=== PATIENT | female | born 2005 | race Caucasian/White ===

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

== ENCOUNTER 2025-05-23 12:13 | Emergency (ER) | payer SELFPAY ==
[2025-05-23 12:36] VITALS: BP 129/81; PULSE 86; RESP 16; TEMP 36.8; O2SAT 99; BMI 29.2
--- NOTE | 2025-05-23 13:00 | XR_ITS ---
WS: [id number] Exam: XR foot RT min 3V* [id number] Date/Time of Exam: 05/23/2025 1:12 PM Reason For Exam: pain No fracture noted. The joints are preserved. Normal soft tissues. XR/XR foot RT min 3V* [id number] IMPRESSION: 1. Negative RIGHT foot.
[2025-05-23 13:09] LABS: Hematocrit 43.7 % (36-47); Hemoglobin 14.20 g/dL (12.4-14.8); Mean Corpuscular HGB Conc 32.5 g/dL (30-55); Mean Corpuscular Hemoglobin 29.4 pg (27-33); Mean Corpuscular Volume 90.5 fl (85-98); Nucleated Red Blood Cells % 0 %; Platelet Count 214 10^3/cmm (157-399); Red Blood Count 4.83 10^6/uL (3.85-5.65); White Blood Count 7.41 10^3/uL (4.5-13.0)
[2025-05-23 13:29] LABS: Anion Gap 14.8 (5-19); Blood Urea Nitrogen 12 mg/dL (6-20); Calcium 9.3 mg/dL (8.5-10.5); Carbon Dioxide 26 mmol/L (22-29); Chloride 102 mmol/L (98-107); Glucose 93 mg/dL (65-115); Osmolality Calculated 287 mOsm/kg (285-295); Potassium 3.8 mmol/L (3.5-5.1); Sodium 139 mmol/L (136-145)
--- NOTE | 2025-05-23 13:42 | W.ED.EXTPRO ---
HPI - Extremity Problem General: Chief complaint: Extremity Problem,Nontraumatic Stated complaint: discoloration on bottom of R foot Time Seen by Provider: 05/23/25 12:42 History of Present Illness: 20-year-old female presents emergency room complaining of forefoot pain particularly over the 1st, 2nd and 3rd metatarsals distally. 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 She also reports her feet get very sweaty last night there is some discoloration on her feet she showed me a picture compared to the day it has already resolved. She has not had any direct trauma. Related Data Home Medications ?Medication ?Instructions ?Recorded ?Confirmed cetirizine 10 mg capsule (Zyrtec) 10 mg PO DAILY PRN 06/08/23 06/08/23 Previous Rx's ?Medication ?Instructions ?Recorded amoxicillin 875 mg-potassium 1 tab PO BID 7 days #14 tabs 06/08/23 clavulanate 125 mg tablet Allergies Allergy/AdvReac Type Severity Reaction Status Date / Time diphenhydramine (From Allergy Intermediate Unknown Verified 06/08/23 14:44 Benadryl) guaifenesin (From Robitussin) Allergy Intermediate Unknown Verified 06/08/23 14:44 Physical Exam Const: COMMON NORMALS: no acute distress GENERAL APPEARANCE: cooperative and comfortable ORIENTATION/CONSCIOUSNESS: Yes awake, Yes oriented to person, Yes oriented to place and Yes oriented to time HENMT: COMMON NORMALS: normocephalic, atraumatic and hearing grossly normal bilaterally HEAD & SCALP: normocephalic and atraumatic Resp: COMMON NORMALS: normal respiratory effort, No retractions and No use of accessory muscles Extremity: COMMON NORMALS: normal to inspection, capillary refill normal, no clubbing, cyanosis or edema, no calf tenderness and no pedal edema OTHER: Examination of the right foot patient has an unusual callus pattern with callus over the distal first metatarsal and then over the 3rd, 4th and 5th metatarsals between which there is a small gap on callused skin. No lacerations no evidence of foreign body no deformity no ecchymosis. No skin breakdown ulcerations. No signs of infection Neuro: SENSORIUM/ORIENTATION: Yes oriented to person, Yes oriented to place and Yes oriented to time Skin: COMMON NORMALS: no rashes or lesions noted GENERAL SKIN EXAM: no rashes or lesions noted Course Vital Signs: Vital signs: Vital Signs Temperature 98.2 F 05/23/25 12:36 Pulse Rate 86 05/23/25 12:36 Respiratory Rate 16 05/23/25 12:36 Blood Pressure 129/81 05/23/25 12:36 Pulse Oximetry 99 05/23/25 12:36 Oxygen Delivery Me thod Room Air 05/23/25 12:36 MDM - Extremity (Nontraumatic) Medical Decision Making Medical decision making Social determinants: None I reviewed the patient's medical record. I reviewed the patient's current home meds. Alternate historians: None Differential diagnosis: Fracture versus infection versus soft tissue strain Lab Review: CBC is normal, BMP normal Imaging: X-ray of the right foot no acute fractures no acute abnormalities Assessment of risk Level of risk: Low Hospitalization considerations: Not considered Reexamination: Unchanged Assessment and plan: No acute fracture or abnormality found. Suspect may have some metatarsalgia which is the cause of her chronic foot pain when she is on her feet for extended period of time. I also think she may have some moderate pedal hyperhidrosis. Recommend that she change her socks while at work and will refer her to podiatry no acute or emergent finding at this time. Lab Data 05/23/25 13:03 05/23/25 13:03 Radiology Impressions Foot X-Ray 05/23/25 13:00 IMPRESSION: 1. Negative RIGHT foot. Laboratory Results WBC 7.41 10^3/uL (4.5-13.0) 05/23/25 13:03 RBC 4.83 10^6/uL (3.85-5.65) 05/23/25 13:03 Hgb 14.20 g/dL (12.4-14.8) 05/23/25 13:03 Hct 43.7 % (36-47) 05/23/25 13:03 MCV 90.5 fl (85-98) 05/23/25 13:03 MCH 29.4 pg (27-33) 05/23/25 13:03 MCHC 32.5 g/dL (30-55) 05/23/25 13:03 RDW 12.4 % (12.1-15.1) 05/23/25 13:03 Plt Count 214 10^3/cmm (157-399) 05/23/25 13:03 MPV 11.6 fL (7.4-10.4) H 05/23/25 13:03 Neut % (Auto) 66.8 % 05/23/25 13:03 Lymph % (Auto) 24.4 % 05/23/25 13:03 [place] % (Auto) 6.2 % 05/23/25 13:03 Eos % (Auto) 1.9 % 05/23/25 13:03 Baso % (Auto) 0.4 % 05/23/25 13:03 Neut # (Auto) 4.95 10^3/uL (1.8-8.0) 05/23/25 13:03 Lymph # (Auto) 1.8 10^3/uL (1.5-6.5) 05/23/25 13:03 [place] # (Auto) 0.5 10^3/uL (0.2-0.9) 05/23/25 13:03 Eos # (Auto) 0.1 10^3/uL (0.0-0.8) 05/23/25 13:03 Baso # (Auto) 0.0 10^3/uL (0.0-0.1) 05/23/25 13:03 Nucleated RBC % (auto) 0 % 05/23/25 13:03 Nucleated RBCs # 0.0 /100WBC 05/23/25 13:03 Sodium 139 mmol/L (136-145) 05/23/25 13:03 Potassium 3.8 mmol/L (3.5-5.1) 05/23/25 13:03 Chloride 102 mmol/L (98-107) 05/23/25 13:03 Carbon Dioxide 26 mmol/L (22-29) 05/23/25 13:03 Anion Gap 14.8 (5-19) 05/23/25 13:03 BUN 12 mg/dL (6-20) 05/23/25 13:03 Creatinine 0.7 mg/dL (0.5-0.9) 05/23/25 13:03 GFR Calculation 106.7 mL/min (90-130) 05/23/25 13:03 Glucose 93 mg/dL (65-115) 05/23/25 13:03 Calculated Osmolality 287 mOsm/kg (285-295) 05/23/25 13:03 Calcium 9.3 mg/dL (8.5-10.5) 05/23/25 13:03 All radiology interpretation(s) finalized by discharge Discharge Plan Discharge Patient Disposition: Home Clinical Impression: Metatarsalgia of right foot Condition: Stable Prescriptions: No Action Zyrtec 10 mg capsule 10 mg PO DAILY PRN amoxicillin-pot clavulanate 875-125 mg tablet 1 tab PO BID 7 Days Qty: 14 0RF Discharge Orders: Discharge ED (Routine); Ordered 05/23/25 Ordered By: Matt Shore Referrals: Tab Lira DO [Primary Care Provider, [facility]] Discharge Diet: Usual diet Discharge Activity: Increase activity as tolerated Patient Instructions: Opioid Safety, Pain Management, Patient Portal & Bethanie Instructions Activity Restrictions/Additional Instructions: [facility]. It is very important that you follow up as instructed or that you return to the Emergency Department should you have concerns or if your condition changes or worsens in any way. Emergency department visits are focused on emergent conditions, in some cases you may require further evaluation on an outpatient basis. You were seen in the emergency room with right foot pain. X-ray appears normal. Based on your symptoms presentation and have metatarsalgia. Will set you up to follow-up with podiatry. Use stiff bottom shoes and [id number] anti-inflammatories for discomfort. (Please note that included in your discharge packet is information concerning opioid safety and pain management. This information is given to all patients were discharged from the ER regardless of their discharge diagnosis or the medicines they usually take or are prescribed.) Print Language: Nepali Coding Level of Care Code ED Individual Pension Consultant for Kathy Meek
== END 2025-05-23 14:10 | disposition home or self-care (01) ==
PROVIDERS: Emergency Provider Family Medicine; PCP Family Medicine
DX: M77.41 Metatarsalgia, right foot (principal)
CPT/HCPCS: 36415; 73630; 80048; 85025; 99284